=== PATIENT | male | born 1945 | race Two or more races ===

== ENCOUNTER 2020-09-30 22:01 | Inpatient (IN) | payer MEDICAID, OTHER ==
[~2020-09-30] VITALS: Ht 167.6 cm; Wt 68.5 kg
[2020-09-30 22:46] LABS: Basophils # (auto) 0.1 10 ^3/uL (0-0.2); Basophils % (auto) 1.1 % (0.0-2.0); Eosinophils # (auto) 0 10 ^3/uL (0-0.8); Hematocrit 33.1 % (41.0-53.0); Hemoglobin 11.2 g/dL (13.5-17.5); Lymphocytes # (auto) 0.3 10 ^3/uL (0.4-5.4); Lymphocytes % (auto) 2.6 % (10.0-50.0); Mean Corpuscular Hemoglobin 29.2 pg (28.0-32.0); Mean Corpuscular Hgb Conc. 33.9 g/dL (32.0-36.0); Mean Corpuscular Volume 86.1 fL (80.0-100.0); Monocytes # (auto) 0.5 10 ^3/uL (0-1.3); Monocytes % (auto) 4.2 % (0.0-12.0); Neutrophils # (auto) 11.2 10 ^3/uL (1.6-8.6); Neutrophils % (auto) 92.1 % (37.0-80.0); Red Blood Cells 3.84 10^6/uL (4.5-5.90); Red Cell Distribution Width 14.5 % (11.8-14.3); White Blood Cell 12.1 10^3/uL (4.4-10.8)
[2020-09-30 22:58] LABS: Albumin 2.9 g/dL (3.4-5.0); Anion Gap 13 (5-15); Blood Urea Nitrogen 24 mg/dL (7-18); Calcium 9.2 mg/dL (8.5-10.1); Carbon Dioxide 24 mmol/L (21-32); Chloride 89 mmol/L (98-107); Glucose 286 mg/dL (74-106); Magnesium 1.7 mg/dL (1.6-2.6); Potassium 4.4 mmol/L (3.5-5.1); Sodium 126 mmol/L (136-145)
[2020-09-30 23:10] LABS: Alanine Aminotransferase 35 U/L (16-61); Alkaline Phosphatase 71 U/L (45-117); Aspartate Aminotransferase 29 U/L (15-37); BUN/Creatinine Ratio 19.7; Bilirubin, Total 0.2 mg/dL (0.2-1.0); CRP High Sensitivity 5.51 mg/dL (< 0.3); GFR African American 75 mL/min; GFR Non-African American 62 mL/min; Total Protein 7.6 g/dL (6.4-8.2)
[2020-09-30 23:24] LABS: Amphetamine Screen, Urine NEGATIVE (NEGATIVE); Barbiturate Scree,Urine NEGATIVE (NEGATIVE); Benzodiazephine Screen, Urine NEGATIVE (NEGATIVE); Cannabinoid Screen, Urine NEGATIVE (NEGATIVE); Cocaine Screen, Urine NEGATIVE (NEGATIVE); Opiate Scree,Urine NEGATIVE (NEGATIVE); Phencyclidine Screen, Urine NEGATIVE (NEGATIVE)
[2020-09-30 23:25] LABS: Urine Bacteria FEW /hpf (None Seen); Urine Blood 2+ /uL (Negative); Urine Budding Yeast LOADED /hpf (None Seen); Urine Specific Gravity 1.019 (1.001-1.035); Urine WBC 226 /hpf (0 - 3)
[2020-09-30 23:30] LABS: INR 1.03 (0.9-1.15)
[2020-09-30 23:33] LABS: Lactic Acid w/Reflex 3.3 mmol/L (0.4-2.0)
[2020-10-01] MEDS ORDERED: SODIUM CHLORIDE 0.9% 1,000 ML IV ONE (00:30)
[2020-10-01] MEDS ORDERED: ALBUTEROL SULF 2.5 MG/0.5ML(0.5%) NEB SOLN NEB ONE (01:15)
[2020-10-01] MEDS ORDERED: IPRATROPIUM BROM 0.5 MG/2.5ML INH SOL NEB ONE (01:15)
[2020-10-01] MEDS ORDERED: DexAMETHasone INJECTION 10 MG in D5W 5% 50 ML IV ONE (01:15)
[2020-10-01] MEDS ORDERED: DexAMETHasone SOD PHOS 4 MG/1ML SDV INJ ONE (01:29)
[2020-10-01] MEDS ORDERED: FLUCONAZOLE 200MG/100ML 100 ML IV ONE (01:30)
[2020-10-01] MEDS ORDERED: cefTRIAXone 1GM/50ML D5W 50 ML IV ONE (01:30)
[2020-10-01] MEDS ORDERED: ONDANSETRON HCL 4 MG/2 ML VIAL IV PRN (02:45)
[2020-10-01] MEDS ORDERED: dilTIAZem 25 MG/5 ML VIAL IV ONE (02:45)
[2020-10-01] MEDS ORDERED: IOHEXOL 350 MG/ML 100ML IJ ONE (02:54)
[2020-10-01] MEDS ORDERED: DEXTROSE (50%) 50ML SYRG IV PRN (03:00)
[2020-10-01] MEDS ORDERED: MORPHINE SULF INJ 2 MG/ML SYRINGE 1ML IV PRN (03:00)
[2020-10-01] MEDS ORDERED: NITROGLYCERIN 0.4 MG SL TAB SL PRN (03:00)
[2020-10-01 03:24] VITALS: BP 166/94
[2020-10-01] MEDS: SODIUM CHLORIDE 0.9% 1,000 ML IV SCH ×2 (05:02→14:38)
[2020-10-01] MEDS: IPRATROPIUM BROM 0.5 MG/2.5ML INH SOL NEB PRN (05:34)
[2020-10-01] MEDS: ALBUTEROL SULF 2.5 MG/0.5ML(0.5%) NEB SOLN NEB PRN (05:34)
[2020-10-01] MEDS: ACCU-CHEK COMFORT CURVE STRIP VI SCH ×4 (06:04→23:42)
[2020-10-01] MEDS: InsuLIN REG 1unit/0.01ml Soln (100units/ml) SC SCH ×4 (06:05→23:44)
[2020-10-01] MEDS ORDERED: AZITHROMYCIN 500MG/ 250ML 250 ML IV SCH (10:00)
[2020-10-01] MEDS ORDERED: DexAMETHasone INJECTION 10 MG in D5W 5% 50 ML IV SCH (10:00)
[2020-10-01] MEDS: PANTOPRAZOLE 40 MG TAB PO SCH (10:00)
[2020-10-01] MEDS ORDERED: DexAMETHasone SOD PHOS 10MG/1ML VIAL INJ IV SCH (10:00)
[2020-10-01 10:54] LABS: Basophils # (auto) 0.1 10 ^3/uL (0-0.2); Basophils % (auto) 0.4 % (0.0-2.0); Eosinophils # (auto) 0 10 ^3/uL (0-0.8); Hemoglobin 10.3 g/dL (13.5-17.5); Lymphocytes # (auto) 0.4 10 ^3/uL (0.4-5.4); Lymphocytes % (auto) 2.5 % (10.0-50.0); Mean Corpuscular Hemoglobin 29.7 pg (28.0-32.0); Mean Corpuscular Hgb Conc. 34.4 g/dL (32.0-36.0); Mean Corpuscular Volume 86.1 fL (80.0-100.0); Monocytes # (auto) 0.4 10 ^3/uL (0-1.3); Monocytes % (auto) 2.7 % (0.0-12.0); Neutrophils # (auto) 13.6 10 ^3/uL (1.6-8.6); Neutrophils % (auto) 94.4 % (37.0-80.0); Red Blood Cells 3.49 10^6/uL (4.5-5.90); Red Cell Distribution Width 14.1 % (11.8-14.3); White Blood Cell 14.4 10^3/uL (4.4-10.8)
[2020-10-01 11:33] LABS: Albumin 2.5 g/dL (3.4-5.0); Calcium 9.1 mg/dL (8.5-10.1); Potassium 4.5 mmol/L (3.5-5.1)
[2020-10-01 11:35] LABS: Salicylate < 1.7 mg/dL (2.8-20.0)
[2020-10-01 11:36] LABS: Acetaminophen < 2.0 ug/mL (10-30)
[2020-10-01 11:43] LABS: BUN/Creatinine Ratio 15.6; Bilirubin, Total 0.2 mg/dL (0.2-1.0)
[2020-10-01] MEDS ORDERED: PIPERACILLIN-TAZOB 3.375GM 100 ML IV ONE (13:45)
[2020-10-01] MEDS: ATORVASTATIN 20 MG TAB PO SCH (21:51)
[2020-10-01 22:00] VITALS: BP 124/72
[2020-10-01] MEDS ORDERED: cefTRIAXone 1GM/50ML D5W 50 ML IV SCH (22:00)
[2020-10-01] MEDS ORDERED: METO25TA5 PO (23:26)
[2020-10-01] MEDS ORDERED: LISI-275 PO (23:26)
[2020-10-01] MEDS ORDERED: ATOR10TA PO (23:26)
[2020-10-01] MEDS ORDERED: METF-370 PO (23:26)
[2020-10-01] MEDS ORDERED: TAMS1CAP25 PO (23:26)
[2020-10-01] MEDS ORDERED: ASPI-543 PO (23:26)
[2020-10-01] MEDS ORDERED: INSLISPI SC (23:26)
[2020-10-01] MEDS ORDERED: CLOP75TA70 PO (23:26)
[2020-10-01] MEDS: PIPERACILLIN-TAZOB 3.375GM 100 ML IV SCH (23:42)
[2020-10-02] MEDS: SODIUM CHLORIDE 0.9% 1,000 ML IV SCH ×2 (03:36→13:45)
[2020-10-02 05:13] VITALS: BP 122/74
[2020-10-02] MEDS: ACCU-CHEK COMFORT CURVE STRIP VI SCH ×3 (05:49→18:00)
[2020-10-02] MEDS: PIPERACILLIN-TAZOB 3.375GM 100 ML IV SCH ×3 (05:49→19:28)
[2020-10-02] MEDS: InsuLIN REG 1unit/0.01ml Soln (100units/ml) SC SCH ×3 (05:51→18:00)
[2020-10-02 06:12] LABS: Basophils # (auto) 0 10 ^3/uL (0-0.2); Basophils % (auto) 0.2 % (0.0-2.0); Eosinophils # (auto) 0 10 ^3/uL (0-0.8); Hematocrit 26.6 % (41.0-53.0); Hemoglobin 9.3 g/dL (13.5-17.5); Lymphocytes % (auto) 8.8 % (10.0-50.0); Mean Corpuscular Hemoglobin 29.6 pg (28.0-32.0); Mean Corpuscular Hgb Conc. 34.9 g/dL (32.0-36.0); Mean Corpuscular Volume 84.9 fL (80.0-100.0); Monocytes # (auto) 0.7 10 ^3/uL (0-1.3); Monocytes % (auto) 6.4 % (0.0-12.0); Neutrophils # (auto) 9.3 10 ^3/uL (1.6-8.6); Neutrophils % (auto) 84.6 % (37.0-80.0); Red Blood Cells 3.13 10^6/uL (4.5-5.90); Red Cell Distribution Width 14.1 % (11.8-14.3)
[2020-10-02 06:43] LABS: Albumin 2.5 g/dL (3.4-5.0); Calcium 8.7 mg/dL (8.5-10.1); Magnesium 1.9 mg/dL (1.6-2.6); Potassium 3.9 mmol/L (3.5-5.1)
[2020-10-02 06:45] LABS: BUN/Creatinine Ratio 18.2
[2020-10-02 06:47] LABS: Bilirubin, Total 0.2 mg/dL (0.2-1.0); Total Protein 6.6 g/dL (6.4-8.2)
[2020-10-02 08:00] VITALS: BP 131/71
[2020-10-02 09:00] VITALS: BP 131/71
[2020-10-02] MEDS: ASPirin-EC 81 mg tab PO SCH (10:00)
[2020-10-02] MEDS: PANTOPRAZOLE 40 MG TAB PO SCH (10:00)
[2020-10-02] MEDS: ALBUTEROL SULF 2.5 MG/0.5ML(0.5%) NEB SOLN NEB PRN (10:27)
[2020-10-02] MEDS: IPRATROPIUM BROM 0.5 MG/2.5ML INH SOL NEB PRN (10:27)
[2020-10-02 13:00] VITALS: BP 120/67
[2020-10-02] MEDS ORDERED: FLUCONAZOLE 200MG/100ML 100 ML IV ONE (13:45)
[2020-10-02] MEDS ORDERED: MAGNESIUM SULFATE 1GM/100ML 100 ML IV ONE (13:45)
[2020-10-02 16:36] VITALS: BP 133/72
[2020-10-02] MEDS: TAMSULOSIN HYDROCHLORIDE 0.4 MG CAP PO SCH (18:00)
[2020-10-02 21:43] VITALS: BP 145/78
[2020-10-02] MEDS: ATORVASTATIN 20 MG TAB PO SCH (22:00)
[2020-10-03] MEDS: PIPERACILLIN-TAZOB 3.375GM 100 ML IV SCH ×4 (00:01→17:57)
[2020-10-03] MEDS: ACCU-CHEK COMFORT CURVE STRIP VI SCH ×4 (00:01→17:57)
[2020-10-03] MEDS: InsuLIN REG 1unit/0.01ml Soln (100units/ml) SC SCH ×4 (00:09→17:58)
[2020-10-03 05:00] VITALS: BP 135/73
[2020-10-03] MEDS: SODIUM CHLORIDE 0.9% 1,000 ML IV SCH (06:25)
[2020-10-03 07:26] LABS: Basophils # (auto) 0 10 ^3/uL (0-0.2); Basophils % (auto) 0.5 % (0.0-2.0); Eosinophils # (auto) 0.1 10 ^3/uL (0-0.8); Eosinophils % (auto) 0.6 % (0.0-7.0); Hematocrit 29.6 % (41.0-53.0); Hemoglobin 10.3 g/dL (13.5-17.5); Lymphocytes % (auto) 11.7 % (10.0-50.0); Mean Corpuscular Hemoglobin 29.9 pg (28.0-32.0); Mean Corpuscular Hgb Conc. 34.8 g/dL (32.0-36.0); Mean Corpuscular Volume 85.9 fL (80.0-100.0); Monocytes # (auto) 0.6 10 ^3/uL (0-1.3); Monocytes % (auto) 6.9 % (0.0-12.0); Neutrophils # (auto) 7.2 10 ^3/uL (1.6-8.6); Neutrophils % (auto) 80.3 % (37.0-80.0); Red Blood Cells 3.45 10^6/uL (4.5-5.90); Red Cell Distribution Width 14.3 % (11.8-14.3); White Blood Cell 8.9 10^3/uL (4.4-10.8)
[2020-10-03 07:40] LABS: BUN/Creatinine Ratio 18.2; Calcium 8.4 mg/dL (8.5-10.1); Magnesium 2.1 mg/dL (1.6-2.6); Potassium 3.7 mmol/L (3.5-5.1)
[2020-10-03 08:00] VITALS: BP 128/77
[2020-10-03 09:00] VITALS: BP 128/77
[2020-10-03] MEDS: CLOPIDOGREL BISULFATE 75 MG TAB PO SCH (10:00)
[2020-10-03] MEDS: ASPirin-EC 81 mg tab PO SCH (10:00)
[2020-10-03] MEDS: FLUCONAZOLE 200MG/100ML 100 ML IV SCH (10:00)
[2020-10-03] MEDS: PANTOPRAZOLE 40 MG TAB PO SCH (10:00)
[2020-10-03 13:00] VITALS: BP 138/77
[2020-10-03 16:45] VITALS: BP 133/74
[2020-10-03] MEDS: TAMSULOSIN HYDROCHLORIDE 0.4 MG CAP PO SCH (17:57)
[2020-10-03 22:00] VITALS: BP 128/75
[2020-10-03] MEDS: ATORVASTATIN 20 MG TAB PO SCH (22:00)
[2020-10-03] MEDS ORDERED: LORazepam 2MG/ML-1ML VIAL IV PRN (22:00)
[2020-10-04] MEDS: PIPERACILLIN-TAZOB 3.375GM 100 ML IV SCH ×5 (00:20→23:54)
[2020-10-04] MEDS: ACCU-CHEK COMFORT CURVE STRIP VI SCH ×5 (00:21→23:48)
[2020-10-04] MEDS: InsuLIN REG 1unit/0.01ml Soln (100units/ml) SC SCH ×5 (00:28→23:53)
[2020-10-04 03:42] VITALS: BP 128/75
[2020-10-04 05:00] VITALS: BP 130/76
[2020-10-04 09:00] VITALS: BP 117/67
[2020-10-04] MEDS: PANTOPRAZOLE 40 MG TAB PO SCH (10:00)
[2020-10-04] MEDS: ASPirin-EC 81 mg tab PO SCH (10:00)
[2020-10-04] MEDS: THIAMINE 100mg/ml INJ (200mg/2ml VIAL) IV SCH (10:00)
[2020-10-04] MEDS: CLOPIDOGREL BISULFATE 75 MG TAB PO SCH (10:00)
[2020-10-04] MEDS: FLUCONAZOLE 200MG/100ML 100 ML IV SCH (10:30)
[2020-10-04 13:00] VITALS: BP 119/64
[2020-10-04 17:00] VITALS: BP 130/73
[2020-10-04] MEDS: TAMSULOSIN HYDROCHLORIDE 0.4 MG CAP PO SCH (17:55)
[2020-10-04 22:00] VITALS: BP 123/69
[2020-10-04] MEDS: ATORVASTATIN 20 MG TAB PO SCH (22:11)
[2020-10-05 05:00] VITALS: BP 113/66
[2020-10-05] MEDS: PIPERACILLIN-TAZOB 3.375GM 100 ML IV SCH ×4 (05:30→23:49)
[2020-10-05] MEDS: ACCU-CHEK COMFORT CURVE STRIP VI SCH ×4 (05:31→23:49)
[2020-10-05] MEDS: InsuLIN REG 1unit/0.01ml Soln (100units/ml) SC SCH ×4 (05:43→23:55)
[2020-10-05 08:36] VITALS: BP 120/63
[2020-10-05] MEDS: THIAMINE 100mg/ml INJ (200mg/2ml VIAL) IV SCH (09:52)
[2020-10-05] MEDS: ASPirin-EC 81 mg tab PO SCH (09:52)
[2020-10-05] MEDS: FLUCONAZOLE 200MG/100ML 100 ML IV SCH (09:52)
[2020-10-05] MEDS: CLOPIDOGREL BISULFATE 75 MG TAB PO SCH (09:53)
[2020-10-05] MEDS: PANTOPRAZOLE 40 MG TAB PO SCH (09:53)
[2020-10-05 13:00] VITALS: BP 110/68
[2020-10-05 14:33] LABS: Folate (Folic Acid) 3.13 ng/mL (5.38-24)
[2020-10-05 17:00] VITALS: BP 135/80
[2020-10-05] MEDS: TAMSULOSIN HYDROCHLORIDE 0.4 MG CAP PO SCH (17:20)
[2020-10-05] MEDS: ATORVASTATIN 20 MG TAB PO SCH (21:58)
[2020-10-05 22:00] VITALS: BP 137/78
[2020-10-05] MEDS ORDERED: CYANOCOBALAMIN (B-12) 1000 MCG/1 ML VIAL IM ONE (22:15)
[2020-10-06 05:00] VITALS: BP 116/68
[2020-10-06 05:36] LABS: Basophils # (auto) 0.1 10 ^3/uL (0-0.2); Basophils % (auto) 1.1 % (0.0-2.0); Eosinophils # (auto) 0.5 10 ^3/uL (0-0.8); Eosinophils % (auto) 6.6 % (0.0-7.0); Hematocrit 29.9 % (41.0-53.0); Hemoglobin 10.5 g/dL (13.5-17.5); Lymphocytes # (auto) 1.3 10 ^3/uL (0.4-5.4); Lymphocytes % (auto) 16.5 % (10.0-50.0); Mean Corpuscular Hemoglobin 29.6 pg (28.0-32.0); Mean Corpuscular Volume 84.5 fL (80.0-100.0); Monocytes # (auto) 0.7 10 ^3/uL (0-1.3); Monocytes % (auto) 8.7 % (0.0-12.0); Neutrophils # (auto) 5.1 10 ^3/uL (1.6-8.6); Neutrophils % (auto) 67.1 % (37.0-80.0); Red Blood Cells 3.54 10^6/uL (4.5-5.90); Red Cell Distribution Width 14.4 % (11.8-14.3); White Blood Cell 7.6 10^3/uL (4.4-10.8)
[2020-10-06] MEDS: PIPERACILLIN-TAZOB 3.375GM 100 ML IV SCH ×3 (05:40→18:28)
[2020-10-06] MEDS: ACCU-CHEK COMFORT CURVE STRIP VI SCH ×4 (05:53→23:07)
[2020-10-06] MEDS: InsuLIN REG 1unit/0.01ml Soln (100units/ml) SC SCH ×4 (05:58→23:13)
[2020-10-06 06:07] LABS: Potassium 3.5 mmol/L (3.5-5.1)
[2020-10-06 06:16] LABS: BUN/Creatinine Ratio 23.9; Calcium 8.6 mg/dL (8.5-10.1)
[2020-10-06 08:30] VITALS: BP 117/70
[2020-10-06] MEDS: CLOPIDOGREL BISULFATE 75 MG TAB PO SCH (10:58)
[2020-10-06] MEDS: ASPirin-EC 81 mg tab PO SCH (10:58)
[2020-10-06] MEDS: PANTOPRAZOLE 40 MG TAB PO SCH (10:59)
[2020-10-06] MEDS: THIAMINE 100mg/ml INJ (200mg/2ml VIAL) IV SCH (11:00)
[2020-10-06] MEDS: FLUCONAZOLE 200MG/100ML 100 ML IV SCH (11:00)
[2020-10-06] MEDS: CYANOCOBALAMIN 500 MCG TAB PO SCH (11:22)
[2020-10-06 12:30] VITALS: BP 136/73
[2020-10-06] MEDS: FOLIC ACID 1 MG in D5W 5% 50 ML INJ SCH (12:31)
[2020-10-06] MEDS ORDERED: IOHEXOL 300 MG/ML 100ML BOTTLE IJ ONE (13:37)
[2020-10-06 17:00] VITALS: BP 131/78
[2020-10-06] MEDS: TAMSULOSIN HYDROCHLORIDE 0.4 MG CAP PO SCH (18:27)
[2020-10-06 20:24] VITALS: BP 131/78
[2020-10-06 21:52] VITALS: BP 120/70
[2020-10-06] MEDS: ATORVASTATIN 20 MG TAB PO SCH (22:00)
[2020-10-06 22:08] LABS: Urine Bacteria FEW /hpf (None Seen); Urine Blood TRACE /uL (Negative); Urine Budding Yeast FEW /hpf (None Seen); Urine Specific Gravity 1.021 (1.001-1.035); Urine WBC 30 /hpf (0 - 3)
[2020-10-06] MEDS: INSULIN LANTUS (GLARGINE) 1 /0.01ml (100units/ml) SC SCH (23:13)
[2020-10-07] MEDS: PIPERACILLIN-TAZOB 3.375GM 100 ML IV SCH ×5 (00:34→23:47)
[2020-10-07 05:00] VITALS: BP 108/62
[2020-10-07] MEDS: ACCU-CHEK COMFORT CURVE STRIP VI SCH ×4 (05:46→23:09)
[2020-10-07] MEDS: InsuLIN REG 1unit/0.01ml Soln (100units/ml) SC SCH ×4 (05:53→23:06)
[2020-10-07 06:01] LABS: Hematocrit 30.9 % (41.0-53.0); Hemoglobin 10.7 g/dL (13.5-17.5)
[2020-10-07 06:23] LABS: Calcium 8.6 mg/dL (8.5-10.1); Potassium 3.6 mmol/L (3.5-5.1)
[2020-10-07 06:29] LABS: BUN/Creatinine Ratio 27.7
[2020-10-07 09:00] VITALS: BP 112/64
[2020-10-07] MEDS: FOLIC ACID 1 MG in D5W 5% 50 ML INJ SCH (10:53)
[2020-10-07] MEDS: CLOPIDOGREL BISULFATE 75 MG TAB PO SCH (10:57)
[2020-10-07] MEDS: PANTOPRAZOLE 40 MG TAB PO SCH (10:57)
[2020-10-07] MEDS: THIAMINE 100mg/ml INJ (200mg/2ml VIAL) IV SCH (10:57)
[2020-10-07] MEDS: CYANOCOBALAMIN 500 MCG TAB PO SCH (10:57)
[2020-10-07] MEDS: ASPirin-EC 81 mg tab PO SCH (10:57)
[2020-10-07] MEDS: FLUCONAZOLE 200MG/100ML 100 ML IV SCH (11:19)
[2020-10-07 13:12] VITALS: BP 116/64
[2020-10-07 17:00] VITALS: BP 112/68
[2020-10-07] MEDS: TAMSULOSIN HYDROCHLORIDE 0.4 MG CAP PO SCH (17:46)
[2020-10-07] MEDS: ATORVASTATIN 20 MG TAB PO SCH (21:24)
[2020-10-07 22:00] VITALS: BP 134/73
[2020-10-07] MEDS: INSULIN LANTUS (GLARGINE) 1 /0.01ml (100units/ml) SC SCH (23:06)
[2020-10-08 05:00] VITALS: BP 103/63
[2020-10-08] MEDS: PIPERACILLIN-TAZOB 3.375GM 100 ML IV SCH ×4 (05:51→23:36)
[2020-10-08] MEDS: ACCU-CHEK COMFORT CURVE STRIP VI SCH ×4 (05:51→23:31)
[2020-10-08] MEDS: InsuLIN REG 1unit/0.01ml Soln (100units/ml) SC SCH ×4 (05:54→23:33)
[2020-10-08 09:00] VITALS: BP 110/64
[2020-10-08] MEDS: THIAMINE 100mg/ml INJ (200mg/2ml VIAL) IV SCH (09:54)
[2020-10-08] MEDS: FOLIC ACID 1 MG in D5W 5% 50 ML INJ SCH (09:56)
[2020-10-08] MEDS: FLUCONAZOLE 200MG/100ML 100 ML IV SCH (09:57)
[2020-10-08] MEDS: CLOPIDOGREL BISULFATE 75 MG TAB PO SCH (09:57)
[2020-10-08] MEDS: ASPirin-EC 81 mg tab PO SCH (09:57)
[2020-10-08] MEDS: CYANOCOBALAMIN 500 MCG TAB PO SCH (09:58)
[2020-10-08] MEDS: PANTOPRAZOLE 40 MG TAB PO SCH (09:58)
[2020-10-08 12:42] VITALS: BP 110/64
[2020-10-08 12:44] VITALS: BP 126/72
[2020-10-08 17:00] VITALS: BP 131/72
[2020-10-08] MEDS: TAMSULOSIN HYDROCHLORIDE 0.4 MG CAP PO SCH (18:17)
[2020-10-08 22:00] VITALS: BP 134/73
[2020-10-08] MEDS: ATORVASTATIN 20 MG TAB PO SCH (22:05)
[2020-10-08] MEDS: INSULIN LANTUS (GLARGINE) 1 /0.01ml (100units/ml) SC SCH (23:33)
[2020-10-09 05:00] VITALS: BP 112/62
[2020-10-09] MEDS: ACCU-CHEK COMFORT CURVE STRIP VI SCH ×4 (05:27→23:25)
[2020-10-09] MEDS: PIPERACILLIN-TAZOB 3.375GM 100 ML IV SCH ×4 (05:27→23:25)
[2020-10-09] MEDS: InsuLIN REG 1unit/0.01ml Soln (100units/ml) SC SCH ×4 (05:36→23:51)
[2020-10-09 05:48] LABS: Basophils # (auto) 0.1 10 ^3/uL (0-0.2); Basophils % (auto) 1.5 % (0.0-2.0); Eosinophils # (auto) 0.2 10 ^3/uL (0-0.8); Eosinophils % (auto) 4.7 % (0.0-7.0); Hematocrit 29.7 % (41.0-53.0); Hemoglobin 10.5 g/dL (13.5-17.5); Lymphocytes # (auto) 1.3 10 ^3/uL (0.4-5.4); Lymphocytes % (auto) 25.5 % (10.0-50.0); Mean Corpuscular Hemoglobin 29.7 pg (28.0-32.0); Mean Corpuscular Hgb Conc. 35.2 g/dL (32.0-36.0); Mean Corpuscular Volume 84.3 fL (80.0-100.0); Monocytes # (auto) 0.7 10 ^3/uL (0-1.3); Monocytes % (auto) 13.6 % (0.0-12.0); Neutrophils # (auto) 2.9 10 ^3/uL (1.6-8.6); Neutrophils % (auto) 54.7 % (37.0-80.0); Red Blood Cells 3.53 10^6/uL (4.5-5.90); Red Cell Distribution Width 14.4 % (11.8-14.3); White Blood Cell 5.2 10^3/uL (4.4-10.8)
[2020-10-09 06:21] LABS: BUN/Creatinine Ratio 23.4; Calcium 8.8 mg/dL (8.5-10.1); Potassium 3.6 mmol/L (3.5-5.1)
[2020-10-09 09:00] VITALS: BP 117/67
[2020-10-09] MEDS: FOLIC ACID 1 MG in D5W 5% 50 ML INJ SCH (10:13)
[2020-10-09] MEDS: ASPirin-EC 81 mg tab PO SCH (10:13)
[2020-10-09] MEDS: THIAMINE 100mg/ml INJ (200mg/2ml VIAL) IV SCH (10:13)
[2020-10-09] MEDS: PANTOPRAZOLE 40 MG TAB PO SCH (10:14)
[2020-10-09] MEDS: CYANOCOBALAMIN 500 MCG TAB PO SCH (10:14)
[2020-10-09] MEDS: CLOPIDOGREL BISULFATE 75 MG TAB PO SCH (10:14)
[2020-10-09] MEDS: FLUCONAZOLE 200MG/100ML 100 ML IV SCH (11:10)
[2020-10-09] MEDS ORDERED: PROMETHAZINE-DM 5 ML ORAL SYRUP GT PRN (12:45)
[2020-10-09 13:00] VITALS: BP 122/63
[2020-10-09 17:00] VITALS: BP 145/78
[2020-10-09] MEDS: TAMSULOSIN HYDROCHLORIDE 0.4 MG CAP PO SCH (17:55)
[2020-10-09] MEDS ORDERED: LACTULOSE 20Gm/30ML SOLN PO PRN (18:45)
[2020-10-09 22:00] VITALS: BP 165/92
[2020-10-09] MEDS: ATORVASTATIN 20 MG TAB PO SCH (23:24)
[2020-10-09] MEDS: INSULIN LANTUS (GLARGINE) 1 /0.01ml (100units/ml) SC SCH (23:51)
[2020-10-10 03:19] VITALS: BP 165/92
[2020-10-10 05:00] VITALS: BP 122/72
[2020-10-10] MEDS: ACCU-CHEK COMFORT CURVE STRIP VI SCH ×4 (05:26→23:27)
[2020-10-10] MEDS: PIPERACILLIN-TAZOB 3.375GM 100 ML IV SCH ×4 (05:26→23:27)
[2020-10-10 05:48] LABS: Basophils # (auto) 0.1 10 ^3/uL (0-0.2); Basophils % (auto) 0.8 % (0.0-2.0); Eosinophils # (auto) 0.1 10 ^3/uL (0-0.8); Eosinophils % (auto) 1.6 % (0.0-7.0); Hematocrit 31.6 % (41.0-53.0); Hemoglobin 10.9 g/dL (13.5-17.5); Lymphocytes # (auto) 1.3 10 ^3/uL (0.4-5.4); Lymphocytes % (auto) 18.7 % (10.0-50.0); Mean Corpuscular Hemoglobin 29.4 pg (28.0-32.0); Mean Corpuscular Hgb Conc. 34.6 g/dL (32.0-36.0); Mean Corpuscular Volume 85.1 fL (80.0-100.0); Monocytes # (auto) 0.7 10 ^3/uL (0-1.3); Monocytes % (auto) 9.6 % (0.0-12.0); Neutrophils # (auto) 4.9 10 ^3/uL (1.6-8.6); Neutrophils % (auto) 69.3 % (37.0-80.0); Nucleated Red Blood Cells % 0.1 %; Red Blood Cells 3.72 10^6/uL (4.5-5.90); Red Cell Distribution Width 14.3 % (11.8-14.3); White Blood Cell 7.1 10^3/uL (4.4-10.8)
[2020-10-10 05:53] LABS: Potassium 3.9 mmol/L (3.5-5.1)
[2020-10-10 06:04] LABS: Albumin 2.4 g/dL (3.4-5.0); BUN/Creatinine Ratio 22.7; Bilirubin, Total 0.2 mg/dL (0.2-1.0); Calcium 8.7 mg/dL (8.5-10.1); Total Protein 7.3 g/dL (6.4-8.2)
[2020-10-10] MEDS: InsuLIN REG 1unit/0.01ml Soln (100units/ml) SC SCH ×4 (06:21→23:33)
[2020-10-10 09:00] VITALS: BP 125/77
[2020-10-10] MEDS: CLOPIDOGREL BISULFATE 75 MG TAB PO SCH (09:53)
[2020-10-10] MEDS: PANTOPRAZOLE 40 MG TAB PO SCH (09:53)
[2020-10-10] MEDS: ASPirin-EC 81 mg tab PO SCH (09:53)
[2020-10-10] MEDS: THIAMINE 100mg/ml INJ (200mg/2ml VIAL) IV SCH (09:54)
[2020-10-10] MEDS: CYANOCOBALAMIN 500 MCG TAB PO SCH (09:54)
[2020-10-10] MEDS: FOLIC ACID 1 MG in D5W 5% 50 ML INJ SCH (10:21)
[2020-10-10] MEDS: FLUCONAZOLE 200MG/100ML 100 ML IV SCH (10:45)
[2020-10-10 13:00] VITALS: BP 120/68
[2020-10-10 17:00] VITALS: BP 121/66
[2020-10-10] MEDS: TAMSULOSIN HYDROCHLORIDE 0.4 MG CAP PO SCH (17:48)
[2020-10-10] MEDS: Glucerna Carbsteady SHAKE Vanilla 8oz PO SCH (18:00)
[2020-10-10 22:00] VITALS: BP 123/68
[2020-10-10] MEDS: ATORVASTATIN 20 MG TAB PO SCH (22:00)
[2020-10-10] MEDS: INSULIN LANTUS (GLARGINE) 1 /0.01ml (100units/ml) SC SCH (23:33)
[2020-10-11 05:00] VITALS: BP 103/58
[2020-10-11 06:32] LABS: Basophils # (auto) 0.1 10 ^3/uL (0-0.2); Basophils % (auto) 1.8 % (0.0-2.0); Eosinophils # (auto) 0.3 10 ^3/uL (0-0.8); Eosinophils % (auto) 5.1 % (0.0-7.0); Hematocrit 29.7 % (41.0-53.0); Hemoglobin 10.4 g/dL (13.5-17.5); Lymphocytes # (auto) 1.2 10 ^3/uL (0.4-5.4); Mean Corpuscular Hemoglobin 29.7 pg (28.0-32.0); Mean Corpuscular Hgb Conc. 34.9 g/dL (32.0-36.0); Monocytes # (auto) 0.6 10 ^3/uL (0-1.3); Monocytes % (auto) 11.1 % (0.0-12.0); Red Cell Distribution Width 14.6 % (11.8-14.3); White Blood Cell 5.2 10^3/uL (4.4-10.8)
[2020-10-11 06:49] LABS: Calcium 8.6 mg/dL (8.5-10.1); Potassium 3.8 mmol/L (3.5-5.1)
[2020-10-11 06:52] LABS: BUN/Creatinine Ratio 20.8
[2020-10-11] MEDS: PIPERACILLIN-TAZOB 3.375GM 100 ML IV SCH ×3 (06:52→17:49)
[2020-10-11] MEDS: ACCU-CHEK COMFORT CURVE STRIP VI SCH ×3 (06:52→18:11)
[2020-10-11] MEDS: InsuLIN REG 1unit/0.01ml Soln (100units/ml) SC SCH ×3 (06:53→18:13)
[2020-10-11 09:00] VITALS: BP 127/75
[2020-10-11] MEDS: Glucerna Carbsteady SHAKE Vanilla 8oz PO SCH ×3 (09:50→17:50)
[2020-10-11] MEDS: FOLIC ACID 1 MG in D5W 5% 50 ML INJ SCH (09:52)
[2020-10-11] MEDS: THIAMINE 100mg/ml INJ (200mg/2ml VIAL) IV SCH (09:52)
[2020-10-11] MEDS: ASPirin-EC 81 mg tab PO SCH (09:53)
[2020-10-11] MEDS: FLUCONAZOLE 200MG/100ML 100 ML IV SCH (09:53)
[2020-10-11] MEDS: CLOPIDOGREL BISULFATE 75 MG TAB PO SCH (09:53)
[2020-10-11] MEDS: PANTOPRAZOLE 40 MG TAB PO SCH (09:53)
[2020-10-11] MEDS: CYANOCOBALAMIN 500 MCG TAB PO SCH (09:54)
[2020-10-11 13:00] VITALS: BP 113/69
[2020-10-11 17:00] VITALS: BP 122/67
[2020-10-11] MEDS: TAMSULOSIN HYDROCHLORIDE 0.4 MG CAP PO SCH (17:50)
[2020-10-11 22:00] VITALS: BP 113/64
[2020-10-11] MEDS: ATORVASTATIN 20 MG TAB PO SCH (22:00)
[2020-10-11] MEDS: INSULIN LANTUS (GLARGINE) 1 /0.01ml (100units/ml) SC SCH (22:00)
[2020-10-12] MEDS: ACCU-CHEK COMFORT CURVE STRIP VI SCH ×5 (00:27→22:30)
[2020-10-12] MEDS: InsuLIN REG 1unit/0.01ml Soln (100units/ml) SC SCH ×5 (00:27→23:36)
[2020-10-12] MEDS: PIPERACILLIN-TAZOB 3.375GM 100 ML IV SCH ×4 (00:30→18:20)
[2020-10-12 05:00] VITALS: BP 105/55
[2020-10-12 05:13] LABS: Basophils # (auto) 0.1 10 ^3/uL (0-0.2); Basophils % (auto) 1.1 % (0.0-2.0); Eosinophils # (auto) 0.3 10 ^3/uL (0-0.8); Eosinophils % (auto) 4.1 % (0.0-7.0); Hematocrit 31.7 % (41.0-53.0); Hemoglobin 10.8 g/dL (13.5-17.5); Lymphocytes # (auto) 1.6 10 ^3/uL (0.4-5.4); Lymphocytes % (auto) 19.9 % (10.0-50.0); Mean Corpuscular Hemoglobin 29.1 pg (28.0-32.0); Mean Corpuscular Hgb Conc. 34.1 g/dL (32.0-36.0); Mean Corpuscular Volume 85.2 fL (80.0-100.0); Monocytes # (auto) 0.7 10 ^3/uL (0-1.3); Monocytes % (auto) 9.3 % (0.0-12.0); Neutrophils # (auto) 5.2 10 ^3/uL (1.6-8.6); Neutrophils % (auto) 65.6 % (37.0-80.0); Red Blood Cells 3.72 10^6/uL (4.5-5.90); Red Cell Distribution Width 14.7 % (11.8-14.3); White Blood Cell 7.9 10^3/uL (4.4-10.8)
[2020-10-12 05:39] LABS: Albumin 2.7 g/dL (3.4-5.0); Calcium 8.6 mg/dL (8.5-10.1); Potassium 3.8 mmol/L (3.5-5.1)
[2020-10-12 05:42] LABS: BUN/Creatinine Ratio 21.7
[2020-10-12 05:44] LABS: Bilirubin, Total 0.1 mg/dL (0.2-1.0)
[2020-10-12] MEDS: Glucerna Carbsteady SHAKE Vanilla 8oz PO SCH ×3 (08:00→18:20)
[2020-10-12 09:00] VITALS: BP 117/67
[2020-10-12] MEDS: FOLIC ACID 1 MG in D5W 5% 50 ML INJ SCH (10:40)
[2020-10-12] MEDS: CLOPIDOGREL BISULFATE 75 MG TAB PO SCH (10:41)
[2020-10-12] MEDS: THIAMINE 100mg/ml INJ (200mg/2ml VIAL) IV SCH (10:41)
[2020-10-12] MEDS: ASPirin-EC 81 mg tab PO SCH (10:41)
[2020-10-12] MEDS: PANTOPRAZOLE 40 MG TAB PO SCH (10:41)
[2020-10-12] MEDS: CYANOCOBALAMIN 500 MCG TAB PO SCH (10:41)
[2020-10-12] MEDS: FLUCONAZOLE 200MG/100ML 100 ML IV SCH (10:42)
[2020-10-12 13:00] VITALS: BP 136/73
[2020-10-12 17:00] VITALS: BP 135/71
[2020-10-12] MEDS: TAMSULOSIN HYDROCHLORIDE 0.4 MG CAP PO SCH (18:20)
[2020-10-12 19:12] VITALS: BP 135/71
[2020-10-12 22:00] VITALS: BP 135/69
[2020-10-12] MEDS: ATORVASTATIN 20 MG TAB PO SCH (22:01)
[2020-10-12] MEDS: INSULIN LANTUS (GLARGINE) 1 /0.01ml (100units/ml) SC SCH (22:34)
[2020-10-13] MEDS: PIPERACILLIN-TAZOB 3.375GM 100 ML IV SCH ×5 (00:18→23:59)
[2020-10-13 05:00] VITALS: BP 111/68
[2020-10-13] MEDS: ACCU-CHEK COMFORT CURVE STRIP VI SCH ×4 (05:57→23:42)
[2020-10-13] MEDS: InsuLIN REG 1unit/0.01ml Soln (100units/ml) SC SCH ×4 (06:08→23:46)
[2020-10-13 09:00] VITALS: BP 131/74
[2020-10-13] MEDS: PANTOPRAZOLE 40 MG TAB PO SCH (10:22)
[2020-10-13] MEDS: ASPirin-EC 81 mg tab PO SCH (10:22)
[2020-10-13] MEDS: FOLIC ACID 1 MG in D5W 5% 50 ML INJ SCH (10:22)
[2020-10-13] MEDS: Glucerna Carbsteady SHAKE Vanilla 8oz PO SCH ×3 (10:22→17:56)
[2020-10-13] MEDS: THIAMINE 100mg/ml INJ (200mg/2ml VIAL) IV SCH (10:22)
[2020-10-13] MEDS: CLOPIDOGREL BISULFATE 75 MG TAB PO SCH (10:22)
[2020-10-13] MEDS: CYANOCOBALAMIN 500 MCG TAB PO SCH (10:23)
[2020-10-13 12:48] VITALS: BP 137/79
[2020-10-13 16:56] VITALS: BP 134/79
[2020-10-13] MEDS: TAMSULOSIN HYDROCHLORIDE 0.4 MG CAP PO SCH (17:56)
[2020-10-13 22:00] VITALS: BP 113/72
[2020-10-13] MEDS: ATORVASTATIN 20 MG TAB PO SCH (22:22)
[2020-10-13] MEDS: INSULIN LANTUS (GLARGINE) 1 /0.01ml (100units/ml) SC SCH (22:25)
[2020-10-14 05:00] VITALS: BP 108/60
[2020-10-14] MEDS: InsuLIN REG 1unit/0.01ml Soln (100units/ml) SC SCH ×3 (05:46→17:41)
[2020-10-14] MEDS: ACCU-CHEK COMFORT CURVE STRIP VI SCH ×3 (05:46→17:40)
[2020-10-14] MEDS: PIPERACILLIN-TAZOB 3.375GM 100 ML IV SCH ×3 (05:58→17:40)
[2020-10-14 08:16] VITALS: BP 111/65
[2020-10-14] MEDS: CLOPIDOGREL BISULFATE 75 MG TAB PO SCH (10:11)
[2020-10-14] MEDS: ASPirin-EC 81 mg tab PO SCH (10:11)
[2020-10-14] MEDS: CYANOCOBALAMIN 500 MCG TAB PO SCH (10:11)
[2020-10-14] MEDS: PANTOPRAZOLE 40 MG TAB PO SCH (10:11)
[2020-10-14] MEDS: THIAMINE 100mg/ml INJ (200mg/2ml VIAL) IV SCH (10:12)
[2020-10-14] MEDS: FOLIC ACID 1 MG in D5W 5% 50 ML INJ SCH (10:13)
[2020-10-14] MEDS: Glucerna Carbsteady SHAKE Vanilla 8oz PO SCH ×3 (10:20→17:44)
[2020-10-14 13:00] VITALS: BP 172/68
[2020-10-14 17:00] VITALS: BP 142/71
[2020-10-14] MEDS: TAMSULOSIN HYDROCHLORIDE 0.4 MG CAP PO SCH (17:39)
[2020-10-14 22:02] VITALS: BP 130/76
[2020-10-14] MEDS: ATORVASTATIN 20 MG TAB PO SCH (22:34)
[2020-10-14] MEDS: INSULIN LANTUS (GLARGINE) 1 /0.01ml (100units/ml) SC SCH (22:39)
[2020-10-15] MEDS: PIPERACILLIN-TAZOB 3.375GM 100 ML IV SCH ×3 (00:28→11:58)
[2020-10-15] MEDS: InsuLIN REG 1unit/0.01ml Soln (100units/ml) SC SCH ×3 (00:28→12:25)
[2020-10-15 05:16] VITALS: BP 112/67
[2020-10-15] MEDS: ACCU-CHEK COMFORT CURVE STRIP VI SCH ×3 (06:00→12:23)
[2020-10-15 06:39] LABS: Hematocrit 32.8 % (41.0-53.0)
[2020-10-15 06:54] LABS: Calcium 8.8 mg/dL (8.5-10.1); Magnesium 2.1 mg/dL (1.6-2.6); Potassium 3.7 mmol/L (3.5-5.1)
[2020-10-15 06:56] LABS: BUN/Creatinine Ratio 25.3
[2020-10-15] MEDS: Glucerna Carbsteady SHAKE Vanilla 8oz PO SCH ×2 (08:00→12:25)
[2020-10-15 09:11] VITALS: BP 176/74
[2020-10-15] MEDS: THIAMINE 100mg/ml INJ (200mg/2ml VIAL) IV SCH (09:58)
[2020-10-15] MEDS: ASPirin-EC 81 mg tab PO SCH (09:58)
[2020-10-15] MEDS: CLOPIDOGREL BISULFATE 75 MG TAB PO SCH (09:58)
[2020-10-15] MEDS: PANTOPRAZOLE 40 MG TAB PO SCH (09:59)
[2020-10-15] MEDS: CYANOCOBALAMIN 500 MCG TAB PO SCH (10:00)
[2020-10-15] MEDS: FOLIC ACID 1 MG in D5W 5% 50 ML INJ SCH (10:00)
[2020-10-15] MEDS ORDERED: hydrALAZINE HCL 20 MG/ML VL IV PRN (13:00)
[2020-10-15 13:25] VITALS: BP 150/63
== END 2020-10-15 16:30 | disposition short-term general hospital (02) | DRG 720 ==
LOC: EDBD 22:01 → ER 22:06 → TELE 10-01 02:49 → TELE-WESTW 10-01 19:15
PROVIDERS: ADMIT Nurse Practitioner; ATTEND Internal Medicine
DX: A41.9 Sepsis, unspecified organism (principal); J96.01 Acute respiratory failure with hypoxia; J69.0 Pneumonitis due to inhalation of food and vomit; N17.0 Acute kidney failure with tubular necrosis; E43 Unspecified severe protein-calorie malnutrition; G93.1 Anoxic brain damage, not elsewhere classified; L89.154 Pressure ulcer of sacral region, stage 4; G92 Toxic encephalopathy; E87.1 Hypo-osmolality and hyponatremia; B37.49 Other urogenital candidiasis; I69.351 Hemiplegia and hemiparesis following cerebral infarction affecting right dominant side; G40.209 Localization-related (focal) (partial) symptomatic epilepsy and epileptic syndromes with complex partial seizures, not intractable, without status epilepticus; L89.510 Pressure ulcer of right ankle, unstageable; E11.9 Type 2 diabetes mellitus without complications; N40.0 Benign prostatic hyperplasia without lower urinary tract symptoms; I10 Essential (primary) hypertension; E53.8 Deficiency of other specified B group vitamins; Z20.822 Contact with and (suspected) exposure to COVID-19; Z74.01 Bed confinement status; Z79.02 Long term (current) use of antithrombotics/antiplatelets; Z79.82 Long term (current) use of aspirin; Z79.899 Other long term (current) drug therapy; Z82.49 Family history of ischemic heart disease and other diseases of the circulatory system; Z83.3 Family history of diabetes mellitus; Z68.22 Body mass index [BMI] 22.0-22.9, adult; Z86.16 Personal history of COVID-19
CPT/HCPCS: 31720; 36415; 36600; 70450; 70551; 71045; 71275; 72132; 80048; 80053; 80061; 80307; 80320; 80329; 81001; 82270; 82533; 82607; 82746; 82805; 82962; 83036; 83605; 83735; 83930; 84443; 84484; 84550; 85014; 85018; 85025; 85379; 85610; 85730; 86141; 87040; 87077; 87081; 87086; 87088; 87186; 87205; 87426; 93005; 94640; 95819; 96361; 96365; 96366; 96367; 96368; 96372; 96375; 96376; 97110; 97116; 97163; 97530; G0378; J0696; J1100; J1450; J1815; J2543; J7060